=== PATIENT | male | born 1995 | race Caucasian/White ===

== ENCOUNTER 2018-09-24 15:51 | Emergency (ER) | payer MEDICAID ==
[2018-09-24] MEDS: DEXAMETHASONE 4 MG/ML 1 ML INJ IM (19:47)
[2018-09-24] MEDS: ACETAMINOPHEN 500 MG TAB PO (20:12)
[2018-09-24] MEDS: IBUPROFEN 600 MG TAB PO (20:13)
[2018-09-24] MEDS: ERYTHROMYCIN 1 GM OPH OINT BOTH EYES (20:13)
[2018-09-24] MEDS: PREDNISOLONE ACET 1% 5 ML OPH BOTH EYES (20:13)
== END 2018-09-24 20:16 | disposition home or self-care (01) ==
LOC: FTE 20:16
DX: H01.00A Unspecified blepharitis right eye, upper and lower eyelids (principal); H01.00B Unspecified blepharitis left eye, upper and lower eyelids; H10.9 Unspecified conjunctivitis
CPT/HCPCS: 96372; 99284-25